=== PATIENT | female | born 1950 | race Caucasian/White ===

== ENCOUNTER 2017-06-12 17:32 | Emergency (ER) | payer BC ==
[~2017-06-12] VITALS: Ht 160 cm; Wt 54.0 kg
[2017-06-12 17:40] VITALS: BP 105/64; PULSE 82; RESP 16; TEMP 98.4; O2SAT 97
[2017-06-12] MEDS ORDERED: SODIUM CHLOR 0.9% 1000 ML INJ 1,000 ML IV ONE (18:00)
--- NOTE | 2017-06-12 18:01 | PD ---
HPI Chief Complaint: Fever Time Seen by Provider: 17:45 Travel History International Travel<30 days: No Contact w/Intl Traveler<30days: No Traveled to known affect area: No History of Present Illness HPI 66-year-old female with breast cancer presents emergency department for evaluation of a fever that started yesterday. Patient states that she developed a fever of 101.5 was advised to go to urgent care. She went to urgent care and says that her labs, urinalysis and influenza were negative and normal. She was prescribed Augmentin. Since today around 4 PM she developed another fever of 101.2 and took 600 mg ibuprofen. Currently she does not have a fever. Says that her only symptoms that she "feels crappy". She denies congestion, shortness of breath, abdominal pain, nausea, vomiting or diarrhea, urinary discomfort. She called her oncologist, Dr. Ibarra and she recommended patient come in for evaluation. Patient says she does currently take chemo and her last treatment was . She does have a port. PFSH Past Medical History Chemotherapy: Yes (06/07/17) Social History Tobacco Use: No Allergies-Medications (Allergen,Severity, Reaction): Coded Allergies: codeine (Verified Allergy, Mild, Nausea/Vomiting, 05/31/17) Reported Meds & Prescriptions Reported Meds & Active Scripts Active Levofloxacin 500 Mg Tablet 500 Mg PO DAILY 5 Days Reported Zofran (Ondansetron HCl) 4 Mg Tab 4 Mg PO Q6HR PRN Ativan (Lorazepam) 0.5 Mg Tab 0.5 Mg PO HS PRN Wellbutrin Xl 24 HR (Bupropion HCl) 150 Mg Tab 150 Mg PO DAILY Levothyroxine (Levothyroxine Sodium) 125 Mcg Tab 125 Mcg PO DAILY Review of Systems Except as stated in HPI: all other systems reviewed are Neg Physical Exam Narrative GENERAL: Well-developed, well-nourished in no apparent distress SKIN: Focused skin assessment warm/dry. HEAD: Atraumatic. Normocephalic. EYES: Pupils equal and round. No scleral icterus. No injection or drainage. ENT: No nasal bleeding or discharge. Mucous membranes pink and moist. NECK: Trachea midline. No JVD. No lymphadenopathy CARDIOVASCULAR: Regular rate and rhythm. No murmur appreciated. RESPIRATORY: No accessory muscle use. Clear to auscultation. Breath sounds equal bilaterally. GASTROINTESTINAL: Abdomen soft, non-tender, nondistended. Hepatic and splenic margins not palpable. MUSCULOSKELETAL: No obvious deformities. No clubbing. No cyanosis. No edema. NEUROLOGICAL: Awake and alert. No obvious cranial nerve deficits. Motor grossly within normal limits. Normal speech. PSYCHIATRIC: Appropriate mood and affect; insight and judgment normal. Data Data Last Documented VS Vital Signs Date Time Temp Pulse Resp B/P (MAP) Pulse Ox O2 Delivery O2 Flow Rate FiO2 06/12/17 18:15 72 18 133/73 (93) 99 Room Air 06/12/17 17:40 98.4 Orders Orders Sepsis Workup Initiated (06/12/17 ) Electrocardiogram (06/12/17 17:55) Complete Blood Count With Diff (06/12/17 17:55) Comprehensive Metabolic Panel (06/12/17 17:55) Prothrombin Time / Inr (Pt) (06/12/17 17:55) Act Partial Throm Time (Ptt) (06/12/17 17:55) Lactic Acid Sepsis Protocol (06/12/17 17:55) Magnesium (Mg) (06/12/17 17:55) Phosphorus (Po4) (06/12/17 17:55) Lipase (06/12/17 17:55) Urinalysis - C+S If Indicated (06/12/17 17:55) Blood Culture (06/12/17 17:55) Chest, Single Ap (06/12/17 17:55) Blood Glucose (06/12/17 17:55) Ecg Monitoring (06/12/17 17:55) Iv Access Insert/Monitor (06/12/17 17:55) Oximetry (06/12/17 17:55) Oxygen Administration (06/12/17 17:55) Sodium Chlor 0.9% 1000 Ml Inj (Ns 1000 M (06/12/17 18:00) Uric Acid (06/12/17 17:55) Urine Culture (06/12/17 18:11) Ceftriaxone Inj (Rocephin Inj) (06/12/17 19:00) Ed Discharge Order (06/12/17 19:56) Labs Laboratory Tests Test 06/12/17 18:04 06/12/17 18:11 White Blood Count 3.1 TH/MM3 Red Blood Count 2.98 MIL/MM3 Hemoglobin 10.0 GM/DL Hematocrit 28.4 % Mean Corpuscular Volume 95.4 FL Mean Corpuscular Hemoglobin 33.5 PG Mean Corpuscular Hemoglobin Concent 35.2 % Red Cell Distribution Width 18.3 % Platelet Count 317 TH/MM3 Mean Platelet Volume 7.4 FL Neutrophils (%) (Auto) 76.8 % Lymphocytes (%) (Auto) 10.4 % Monocytes (%) (Auto) 3.6 % Eosinophils (%) (Auto) 8.5 % Basophils (%) (Auto) 0.7 % Neutrophils # (Auto) 2.4 TH/MM3 Lymphocytes # (Auto) 0.3 TH/MM3 Monocytes # (Auto) 0.1 TH/MM3 Eosinophils # (Auto) 0.3 TH/MM3 Basophils # (Auto) 0.0 TH/MM3 CBC Comment DIFF FINAL Differential Comment Prothrombin Time 10.9 SEC Prothromb Time International Ratio 1.1 RATIO Activated Partial Thromboplast Time 27.3 SEC Blood Urea Nitrogen 17 MG/DL Creatinine 0.72 MG/DL Random Glucose 95 MG/DL Total Protein 6.6 GM/DL Albumin 3.5 GM/DL Calcium Level 8.6 MG/DL Phosphorus Level 3.6 MG/DL Magnesium Level 2.2 MG/DL Uric Acid 3.5 MG/DL Alkaline Phosphatase 64 U/L Aspartate Amino Transf (AST/SGOT) 29 U/L Alanine Aminotransferase (ALT/SGPT) 28 U/L Total Bilirubin 0.7 MG/DL Sodium Level 136 MEQ/L Potassium Level 3.9 MEQ/L Chloride Level 103 MEQ/L Carbon Dioxide Level 23.8 MEQ/L Anion Gap 9 MEQ/L Estimat Glomerular Filtration Rate 82 ML/MIN Lactic Acid Level 0.7 mmol/L Lipase 276 U/L Urine Color YELLOW Urine Turbidity CLEAR Urine pH 5.5 Urine Specific [place] 1.014 Urine Protein NEG mg/dL Urine Glucose (UA) NEG mg/dL Urine Ketones NEG mg/dL Urine Occult Blood NEG Urine Nitrite NEG Urine Bilirubin NEG Urine Urobilinogen 2.0 MG/DL Urine Leukocyte Esterase LARGE Urine RBC 2 /hpf Urine WBC 20 /hpf Urine Squamous Epithelial Cells 1 /hpf Urine Bacteria RARE /hpf Urine Mucus FEW /lpf Microscopic Urinalysis Comment CATH-CULTURE IND MDM Medical Decision Making Medical Screen Exam Complete: Yes Emergency Medical Condition: Yes Differential Diagnosis Neutropenic fever, gastroenteritis, pneumonia, urinary tract infection Narrative Course 66-year-old female presents emergency room for evaluation of fever. She has no other complaints today. Labs and imaging studies ordered. EKG shows sinus rhythm at rate 70BPM. No STEMI changes. CBC & BMP Diagram 06/12/17 18:04 Total Protein 6.6, Albumin 3.5, Calcium Level 8.6, Phosphorus Level 3.6, Magnesium Level 2.2, Uric Acid 3.5, Alkaline Phosphatase 64, Aspartate Amino Transf (AST/SGOT) 29, Alanine Aminotransferase (ALT/SGPT) 28, Total Bilirubin 0.7 Urinalysis is suggestive urinary tract infection. Last Impressions Chest X-Ray 06/12/17 [id number] Signed Impressions: Service Date/Time: Monday, June 12, 2017 18:01 - CONCLUSION: No acute disease. Bulmaro Colon MD Rocephin 1 g administered IV. Patient will be discharged with Levaquin. Advised to follow-up with her primary care physician and oncologist. Diagnosis Primary Impression: UTI (urinary tract infection) Qualified Codes: N30.00 - Acute cystitis without hematuria Referrals: Oncologist Primary Care Physician Additional Instructions: Take medication as prescribed. You may stop Augmentin. Continue Tylenol or Motrin for fever. If your symptoms persist or worsen return to the emergency department. Scripts Levofloxacin (Levofloxacin) 500 Mg Tablet 500 MG PO DAILY for Infection for 5 Days, #5 TAB 0 Refills Prov: Chris Daniels MD 06/12/17 Disposition: 01 DISCHARGE HOME Condition: Stable Noy Howard Jun 12, 2017 18:01
[2017-06-12 18:13] VITALS: PULSE 77; RESP 18; O2SAT 100
--- NOTE | 2017-06-12 18:13 | RADRPT ---
EXAM DATE/TIME: 06/12/2017 18:01 [facility] COMPARISON: No previous studies available for comparison. INDICATIONS : Fever MEDICAL HISTORY : None. SURGICAL HISTORY : Infusaport ENCOUNTER: Initial ACUITY: 2 days PAIN SCORE: 0/10 LOCATION: chest FINDINGS: A single view of the chest demonstrates the lungs to be symmetrically aerated without evidence of mas s, infiltrate or effusion. There is a left-sided [id number] in place. The cardiomediastinal conto urs are unremarkable. Osseous structures are intact. CONCLUSION: No acute disease. Bulmaro Colon MD on June 12, 2017 at 18:10 Board Certified Radiologist. This report was verified electronically.
[2017-06-12 18:15] VITALS: BP 133/73; PULSE 72; RESP 18; O2SAT 99
[2017-06-12 18:25] LABS: AUTOMATED NEUTROPHIL # 2.4 TH/MM3 (1.8-7.7); BASOPHIL % 0.7 % (0.0-2.0); EOSINOPHIL # 0.3 TH/MM3 (0-0.4); EOSINOPHIL % 8.5 % (0.0-4.0); HEMATOCRIT 28.4 % (35.0-46.0); LYMPH % 10.4 % (9.0-44.0); LYMPHOCYTE # 0.3 TH/MM3 (1.0-4.8); MEAN CELL VOLUME 95.4 FL (80.0-100.0); MEAN CORPUSCULAR HEMOGLOBIN 33.5 PG (27.0-34.0); MEAN CORPUSCULAR HGB CONC 35.2 % (32.0-36.0); MEAN PLATELET VOLUME 7.4 FL (7.0-11.0); MONO % 3.6 % (0.0-8.0); MONOCYTE # 0.1 TH/MM3 (0-0.9); NEUT % 76.8 % (16.0-70.0); PLATELET COUNT 317 TH/MM3 (150-450); RED BLOOD COUNT 2.98 MIL/MM3 (4.00-5.30); RED CELL DISTRIBUTION WIDTH 18.3 % (11.6-17.2); WHITE BLOOD COUNT 3.1 TH/MM3 (4.0-11.0)
[2017-06-12] MEDS ORDERED: ZOFR4TAB PO (18:34)
[2017-06-12] MEDS ORDERED: LEVO125T4 PO (18:34)
[2017-06-12] MEDS ORDERED: LORA-392 PO (18:34)
[2017-06-12] MEDS ORDERED: BUPR150XL PO (18:34)
[2017-06-12 18:38] LABS: INTERNATIONAL NORMALIZED RATIO 1.1 RATIO; PROTHROMBIN TIME - PATIENT 10.9 SEC (9.8-11.6)
[2017-06-12 18:43] LABS: BACTERIA, URINE RARE /hpf; BILIRUBIN, URINE NEG (NEG); BLOOD, URINE NEG (NEG); GLUCOSE,URINE NEG (NEG); KETONE, URINE NEG (NEG); MUCUS URINE FEW /lpf (OCC); NITRITE,URINE NEG (NEG); PH, URINE 5.5 (5.0-8.5); SQUAMOUS EPITHELIAL CELL URINE 1 /hpf (0-5); URINE COLOR YELLOW (YELLW/STRAW); URINE LEUKOCYTE ESTERASE LARGE (NEG)
[2017-06-12 18:48] LABS: ALBUMIN 3.5 GM/DL (3.4-5.0); AST (GOT) 29 U/L (15-37); BICARBONATE 23.8 MEQ/L (21.0-32.0); BLOOD UREA NITROGEN 17 MG/DL (7-18); CALCIUM 8.6 MG/DL (8.5-10.1); CHLORIDE 103 MEQ/L (98-107); CREATININE 0.72 MG/DL (0.50-1.00); GLOMERULAR FILTRATION RATE 82 ML/MIN (>89); GLUCOSE,RANDOM 95 MG/DL (74-106); MAGNESIUM 2.2 MG/DL (1.5-2.5); SODIUM (NA) 136 MEQ/L (136-145)
[2017-06-12 18:50] LABS: ALT (GPT) 28 U/L (10-53); PHOSPHORUS 3.6 MG/DL (2.5-4.9)
[2017-06-12] MEDS ORDERED: LEVO500T8 PO (18:51)
[2017-06-12 18:52] LABS: ALKALINE PHOSPHATASE 64 U/L (45-117); TOTAL BILIRUBIN ADULT 0.7 MG/DL (0.2-1.0); TOTAL PROTEIN 6.6 GM/DL (6.4-8.2)
[2017-06-12] MEDS ORDERED: cefTRIAXone INJ 1,000 MG in SODIUM CHLORIDE 0.9% INJ 100 ML IV ONE (19:00)
--- NOTE | 2017-06-13 21:13 | EKG ---
Date Performed: 06/12/2017 Time Performed: 18:41:08 PTAGE: 66 years EKG: Sinus rhythm LOW QRS VOLTAGE IN PRECORDIAL LEADS NONSPECIFIC T-WAVE ABNORMALITY BORDERLINE ECG NO PREVIOUS TRACING DOCTOR: Favio Torres Interpretating Date/Time 06/13/2017 21:12:15
== END 2017-06-12 20:18 | disposition home or self-care (01) ==
LOC: NEPC 17:32
DX: N39.0 Urinary tract infection, site not specified (principal); C50.919 Malignant neoplasm of unspecified site of unspecified female breast; R94.31 Abnormal electrocardiogram [ECG] [EKG]; Z88.5 Allergy status to narcotic agent; Z79.899 Other long term (current) drug therapy
CPT/HCPCS: 71045; 80053; 81001; 83605; 83690; 83735; 84100; 84550; 85025; 85610; 85730; 87040; 87086; 93005; 96374; 99285; J0696; J7030